=== PATIENT | female | born 1970 ===

== ENCOUNTER 2025-08-23 10:00 | Day surgery (SDC) | payer OTHER ==
[2025-08-19 14:16] VITALS: BP 126/84
[~2025-08-23] VITALS: Ht 157.5 cm; Wt 75.7 kg
[~2025-08-23 10:00] MED LIST: CARDIZEM30 MG PO; ECOTRIN81 MG PO; LASIX20 MG PO; LOTREL 5-10 MG1 CAP PO; SPIRIVA HANDIH18 MCG; SYMBICORT 16010.2 GM IH; SYNTHROID75 MCG PO
[2025-08-23] MEDS ORDERED: LIDOCAINE HCL 1%/EPINEPHRINE 20ML VIAL IJ ONE (13:02)
[2025-08-23] MEDS ORDERED: POVIDONE-IODINE 118 ML BOTT TOP ONE (13:02)
[2025-08-23] MEDS ORDERED: DIBUCAINE 30 GM TUBE ONE (13:02)
[2025-08-23] MEDS ORDERED: HEMOSTATIC MATRIX 1 KIT KIT TOP ONE (13:02)
[2025-08-23] MEDS ORDERED: BUPIVACAINE HCL/Mpf 0.5% 10ML VIAL ONE (13:02)
[2025-08-23] MEDS ORDERED: CEFTRIAXONE SODIUM 2,000 MG VIAL ONE (13:03)
[2025-08-23] MEDS ORDERED: METRONIDAZOLE/SODIUM CHLORIDE 500 MG/100 ML PIGGYBACK IV ONE (13:03)
[2025-08-23] MEDS ORDERED: OXYCODONE HCL5 MG PO (14:08)
[2025-08-23] MEDS ORDERED: TAMSULOSIN HCL 0.4 MG CAP PO ONE (14:15)
== END 2025-08-23 21:15 | disposition home or self-care (01) ==
LOC: CIR.AMB 10:00
PROVIDERS: ATTEND Surgery
DX: K64.2 Third degree hemorrhoids (principal); K62.5 Hemorrhage of anus and rectum; K64.4 Residual hemorrhoidal skin tags; K62.89 Other specified diseases of anus and rectum